=== PATIENT | male | born 1945 | race Caucasian/White ===

== ENCOUNTER 2023-01-12 06:29 | Day surgery (SDC) | payer MEDICARE ==
[~2023-01-12] VITALS: Ht 175.3 cm; Wt 80.7 kg
[~2023-01-12 06:29] MED LIST: AMLO1TAB24 PO; ASPI-655 PO; CEFD300C41 PO; CYCLOPENTOLATE 1% OPHTH SOLN 2ML BTL OS SCH; DILT180C28 PO; FINA5TAB2 PO; FLURBIPROFEN 0.03% OPHTH SOLN 2.5 ML OS SCH; JARD1TAB3 PO; LOSA25TA13 PO; METF-839 PO; OMEP40CA4 PO; PHENYLEPHRINE 2.5% OPHTH SOL 2ML OS SCH; ROSU10TA6 PO; TAMS1CAP17 PO; TETRACAINE 0.5% OPHTH SOLN 4ML OS SCH; VANC250C3 PO
[2023-01-12] MEDS ORDERED: LIDOCAINE 1% SDV 5ML VIAL As Ordered ONE (06:33)
[2023-01-12] MEDS ORDERED: LR 1,000 ML IV SCH (07:00)
[2023-01-12] MEDS ORDERED: MIDAZOLAM INJ 2MG/2ML VIAL As Ordered ONE (09:00)
[2023-01-12] MEDS ORDERED: fentaNYL 100 MCG/2 ML INJECTION As Ordered ONE (09:00)
[2023-01-12 09:40] VITALS: BP 157/77; TEMP 97; O2SAT 95
== END 2023-01-12 10:15 | disposition home or self-care (01) ==
LOC: M SDC 06:29
PROVIDERS: ATTEND Ophthalmology
DX: H25.12 Age-related nuclear cataract, left eye (principal); I10 Essential (primary) hypertension; E11.9 Type 2 diabetes mellitus without complications; E78.5 Hyperlipidemia, unspecified; N40.0 Benign prostatic hyperplasia without lower urinary tract symptoms; Z79.82 Long term (current) use of aspirin; Z79.899 Other long term (current) drug therapy; Z79.84 Long term (current) use of oral hypoglycemic drugs
CPT/HCPCS: 66984; J2250; J3010; V2788